=== PATIENT | male | born 1995 | race Caucasian/White ===

== ENCOUNTER 2017-07-31 22:59 | Emergency (ER) | payer MEDICAID, OTHER ==
[2017-07-31 23:07] VITALS: BP 128/78
[2017-07-31] MEDS ORDERED: LIDOCAINE 1% INJ-PF (10 MG/ML) 30 ML SDV INJ ONE (23:22)
[2017-07-31] MEDS ORDERED: DIPH/PERTUSS(ACELL)/TETANUS VAC/PF 0.5 ML SYR (>=10YO) IM ONE (23:23)
[2017-07-31] MEDS ORDERED: OXYCODONE-ACETAMINOPHEN 5-325 MG TABLET PO ONE (23:23)
[2017-07-31] MEDS ORDERED: PROMETHAZINE HCL 25 MG TABLET PO ONE (23:23)
--- NOTE | 2017-07-31 23:27 | ER Document Report ---
ED Hand/Wrist Injury - General Chief Complaint: Hand Injury Stated Complaint: LACERATION ON RIGHT HAND Time Seen by Provider: 07/31/17 23:17 Notes: Patient is a 22-year-old male who comes emergency department for chief complaint of injury to his right hand. He states he was working under his truck when the truck slipped off support and hit off of his hand over the dorsal aspect near the thumb. He reports pain to the hand along with lacerations. He denies any other areas of pain or injury. He is not up to date on his tetanus. He is here with family. TRAVEL OUTSIDE OF THE [place] IN LAST 30 DAYS: No - Related Data Allergies/Adverse Reactions: No Known Allergies Allergy (Verified 07/31/17 23:05) Past Medical History - General Information source: Patient - Social History Smoking Status: Current Every Day Smoker Frequency of alcohol use: Occasional Lives with: Family Family History: Reviewed & Not Pertinent Patient has suicidal ideation: No Patient has homicidal ideation: No - Medical History Medical History: Negative Renal/ Medical History: Denies: Hx Peritoneal Dialysis Surgical Hx: Negative - Immunizations Immunizations up to date: No Hx Diphtheria, Pertussis, Tetanus Vaccination: Yes Review of Systems - Review of Systems Constitutional: No symptoms reported EENT: No symptoms reported Cardiovascular: No symptoms reported Respiratory: No symptoms reported Gastrointestinal: No symptoms reported Genitourinary: No symptoms reported Male Genitourinary: No symptoms reported Musculoskeletal: See HPI Skin: No symptoms reported Hematologic/Lymphatic: No symptoms reported Neurological/Psychological: No symptoms reported Physical Exam - Vital signs Vitals: Temp Pulse Resp BP Pulse Ox 98.3 F 71 18 128/78 H 98 07/31/17 23:05 07/31/17 23:05 07/31/17 23:05 07/31/17 23:05 07/31/17 23:05 Interpretation: Normal - General General appearance: Appears well, Alert In distress: None - HEENT Head: Normocephalic, Atraumatic Eyes: Normal Pupils: PERRL - Respiratory Respiratory status: No respiratory distress Chest status: Nontender Breath sounds: Normal Chest palpation: Normal - Cardiovascular Rhythm: Regular Heart sounds: Normal auscultation Murmur: No - Abdominal Inspection: Normal Distension: No distension Bowel sounds: Normal Tenderness: Nontender Organomegaly: No organomegaly - Back Back: Normal, Nontender - Extremities General upper extremity: Other - Right hand with laceration over the webbing and wrist at the base of the thumb, swelling in the thenar area, tenderness over the first and second metacarpals, no snuffbox tenderness, normal capillary refill and sensation, normal range of motion of all fingers, normal hand, forearm, elbow exam otherwise. General lower extremity: Normal inspection, Nontender, Normal color, Normal ROM , Normal temperature, Normal weight bearing. No: Kurt's sign - Neurological Neuro grossly intact: Yes Cognition: Normal Orientation: AAOx4 [place] Coma Scale Eye Opening: Spontaneous [place] Coma Scale Verbal: Oriented Pietro Coma Scale Motor: Obeys Commands [place] Coma Scale Total: 15 Speech: Normal Motor strength normal: LUE, RUE, LLE, RLE Sensory: Normal - Psychological Associated symptoms: Normal affect, Normal mood - Skin Skin Temperature: Warm Skin Moisture: Dry Skin Color: Normal Course - Re-evaluation Re-evalutation: Comminuted second metacarpal of the right hand from the trauma. Open wounds above the fracture although I cannot visualize the fracture, patient has no tendon deficits, no neurological deficits, no evidence of large vessel injury. Wounds were soaked for 30 minutes before procedure. Wounds repaired after thorough cleaning, placed on Augmentin, updated tetanus. Splint placed. Initially was going to do sugar tong but he was immobilized much better with a thumb spica. Patient referred to orthopedics, he stressed importance of follow- up, patient states that he will call tomorrow and be seen in close follow-up. Discussed return precautions. Patient states understanding and agreement. - Vital Signs Vital signs: Temp Pulse Resp BP Pulse Ox 98.3 F 71 18 128/78 H 98 07/31/17 23:05 07/31/17 23:05 07/31/17 23:05 07/31/17 23:05 07/31/17 23:05 Procedures - Immobilization Right hand/wrist Pre-Proc Neuro Vasc Exam: Normal Immobilizer type: Thumb spica Performed by: RN Post-Proc Neuro Vasc Exam: Normal Alignment checked and good: Yes - Laceration/Wound Repair Right wrist Wound length (cm): 2 Wound's Depth, Shape: Linear Laceration pre-procedure: Sterile PPE donned, Sterile drapes applied, Shur- Clens applied Anesthetic type: 1% Lidocaine Volume Anesthetic (mLs): 2 Wound explored: Clean, No foreign body removed Irrigated w/ Saline (mLs): 40 Wound Repaired With: Sutures Suture Size/Type: 5:0, Nylon Number of Sutures: 4 Layer Closure?: No Post-procedure wound care: Sterile dressing applied, Splint applied Post-procedure NV exam normal: Yes Complications: No Right hand Wound length (cm): 4 Wound's Depth, Shape: Irregular Laceration pre-procedure: Sterile PPE donned, Sterile drapes applied, Shur- Clens applied Anesthetic type: 1% Lidocaine Volume Anesthetic (mLs): 6 Wound explored: Clean, No foreign body removed Irrigated w/ Saline (mLs): 60 Wound Repaired With: Sutures Suture Size/Type: 5:0, Nylon Number of Sutures: 9 Layer Closure?: No Post-procedure wound care: Sterile dressing applied, Splint applied Post-procedure NV exam normal: Yes Complications: No Discharge - Discharge Clinical Impression: Injury of right hand Qualifiers: Encounter type: initial encounter Qualified Code(s): S69.91XA - Unspecified injury of right wrist, hand and finger(s), initial encounter Metacarpal bone fracture Qualifiers: Encounter type: initial encounter Metacarpal bone: second Fracture type: open Metacarpal location: base Fracture alignment: nondisplaced Laterality: right Qualified Code(s): S62.340B - Nondisplaced fracture of base of second metacarpal bone, right hand, initial encounter for open fracture Hand laceration Qualifiers: Encounter type: initial encounter Foreign body presence: without foreign body Laterality: right Qualified Code(s): S61.411A - Laceration without foreign body of right hand, initial encounter Condition: Stable Disposition: HOME, SELF-CARE Additional Instructions: There is a comminuted fracture of the second metacarpal of your right hand. Wear the splint, call tomorrow at the number listed for Dr. Lassiter for a close follow-up and additional management. Take the antibiotics as prescribed. Take the pain medication if needed. Return for any concerning symptoms including fever, severe pain, etc. Prescriptions: Morphine Sulfate [Morphine Ir 15 Mg Tablet] 15 mg PO Q4HP PRN #15 tablet PRN Reason: Amox Tr/Potassium Clavulanate [Augmentin 875-125 Tablet] 1 tab PO BID 7 Days tablet Forms: Return to Work Referrals: STEFANIA LASSITER, [ACTIVE STAFF] - Follow up tomorrow
--- NOTE | 2017-08-01 00:45 | RADIOLOGY REPORT (SQ) ---
EXAM DESCRIPTION: HAND RIGHT 3 VIEWS COMPLETED DATE/TIME: 08/01/2017 12:05 am REASON FOR STUDY: impact injury, pain COMPARISON: None. EXAM PARAMETERS: NUMBER OF VIEWS: Three views. TECHNIQUE: AP, lateral and oblique radiographic images acquired of the right hand. LIMITATIONS: None. FINDINGS: MINERALIZATION: Normal. BONES: Comminuted, likely intra-articular fracture of the right 2nd metacarpal proximal shaft and bas e with minimal cortical step-off of 0.1 cm. No evidence of healing. Deformity of the 5th metacarpus consistent prior boxer's fracture. JOINTS: No effusions. SOFT TISSUES: No soft tissue swelling. No foreign body. OTHER: No other significant finding. IMPRESSION: Comminuted fracture of the right 2nd metacarpus. TECHNICAL DOCUMENTATION: JOB ID: [id number] [employer]- All Rights Reserved
[2017-08-01] MEDS ORDERED: AMOXICILLIN TR/POT CLAVULANATE 500-125 MG TAB PO ONE (01:13)
[2017-08-01] MEDS ORDERED: HYDROCODONE/ACETAMINOPHEN 5-325 MG 6 TAB/DSPK PO PRN (01:13)
[2017-08-01] MEDS ORDERED: AMOXICILLIN TRIHYDRATE 500 MG CAPSULE PO ONE (01:13)
== END 2017-08-01 01:40 | disposition home or self-care (01) ==
LOC: ER 22:59
PROC: 0HQDXZZ Repair Right Lower Arm Skin, External Approach (ICD-10-PCS; principal; 2017-07-31)
DX: S61.411A Laceration without foreign body of right hand, initial encounter (principal); S62.34 Nondisplaced fracture of base of other metacarpal bone; W20.8XXA Other cause of strike by thrown, projected or falling object, initial encounter; F17.200 Nicotine dependence, unspecified, uncomplicated; Z23 Encounter for immunization
CPT/HCPCS: 99283; 90471; 73130; 90715; 12002; J3490

== ENCOUNTER 2017-08-09 20:21 | Emergency (ER) | payer OTHER ==
[2017-08-09 20:34] VITALS: BP 140/64
--- NOTE | 2017-08-09 20:54 | ER Document Report ---
HPI - HPI Pain Level: Denies Notes: Patient is a 22-year-old male who presents the ED for suture removal to the right hand. Patient states that he has [address] Patient was evaluated by orthopedics as directed was given a brace. Patient states that he has not had any wound dehiscence, redness, purulent discharge, red streaks. No other concerns or complaints. Denies any headache, fever, URI, sore throat, chest pain, palpitations, syncope, cough, shortness of breath, wheeze, dyspnea, abdominal pain, nausea/vomiting/diarrhea, numbness/tingling, muscle paralysis/ weakness, or rash. - ROS Notes: REVIEW OF SYSTEMS: CONSTITUTIONAL : Denies fever, chills, or sweats. Denies recent illness. EENT: Denies eye, ear, throat, or mouth pain or symptoms. Denies nasal or sinus congestion or discharge. Denies throat, tongue, or mouth swelling or difficulty swallowing. CARDIOVASCULAR: Denies chest pain. Denies palpitations or racing or irregular heart beat. Denies ankle edema. RESPIRATORY: Denies cough, cold, or chest congestion. Denies shortness of breath, difficulty breathing, or wheezing. GASTROINTESTINAL: Denies abdominal pain or distention. Denies nausea, vomiting , or diarrhea. GENITOURINARY: Denies difficulty urinating, painful urination, burning, frequency, blood in urine, or discharge. MUSCULOSKELETAL: Denies back or neck pain or stiffness. Denies joint pain or swelling. SKIN: see hpi NEUROLOGICAL: Denies confusion or altered mental status. Denies passing out or loss of consciousness. Denies dizziness or lightheadedness. Denies headache. Denies weakness or paralysis or loss of use of either side. Denies problems with gait or speech. Denies sensory loss, numbness, or tingling. ALL OTHER SYSTEMS REVIEWED AND NEGATIVE. Dictation was performed using [employer] voice recognition software Past Medical History - Social History Smoking Status: Unknown if Ever Smoked Family History: Reviewed & Not Pertinent Renal/ Medical History: Denies: Hx Peritoneal Dialysis - Immunizations Immunizations up to date: No Hx Diphtheria, Pertussis, Tetanus Vaccination: Yes Vertical Provider Document - CONSTITUTIONAL Agree With Documented VS: Yes Notes: PHYSICAL EXAMINATION: GENERAL: Well-appearing, well-nourished and in no acute distress. LUNGS: Breath sounds clear to auscultation bilaterally and equal. No wheezes rales or rhonchi. HEART: Regular rate and rhythm without murmurs, rubs, gallops. Musculoskeletal: N/V intact to rt hand. Extremities: No cyanosis, clubbing, or edema b/l. Peripheral pulses 2+. Capillary refill less than 3 seconds. NEUROLOGICAL: Normal speech, normal gait. Normal sensory, motor exams PSYCH: Normal mood, normal affect. SKIN: Sutures in place. No wound dehiscence or evidence of infection. - INFECTION CONTROL TRAVEL OUTSIDE OF THE [place] IN LAST 30 DAYS: No - RESPIRATORY O2 Sat by Pulse Oximetry: 98 Course - Re-evaluation Re-evalutation: 08/09/17 20:51 Patient is an afebrile, well-hydrated, 22-year-old male who presents the ED for suture removal status post placement about 9 days ago. Vitals are stable. PE is otherwise unremarkable for any neurovascular compromise, wound dehiscence, or infection. Sutures removed successfully without any complications. 13 in all were removed. Patient to continue direction per orthopedics. Recheck with your PCM next week as well. Return to the ED with any worsening/concerning symptoms otherwise as reviewed in discharge. Pt is in agreement. - Vital Signs Vital signs: Temp Pulse Resp BP Pulse Ox 98.3 F 61 16 140/64 H 98 08/09/17 20:32 08/09/17 20:32 08/09/17 20:32 08/09/17 20:32 08/09/17 20:32 Discharge - Discharge Clinical Impression: Visit for suture removal Condition: Stable Disposition: HOME, SELF-CARE Instructions: Suture Removal Additional Instructions: Keep the skin clean Wash with soap and water Continue wearing brace as directed by orthopedics Monitor for any wound dehiscence or infection Recheck with your PCM next week Keep consult with orthopedics Return to the ED with any worsening symptoms and/or development of fever, headache, chest pain, palpitations, syncope, shortness of breath, trouble breathing, abdominal pain, n/v/d, blood in stool/urine, muscle weakness/ paralysis, numbness/tingling, abscess, wound dehiscence, red streaks, purulent discharge, or other worsening symptoms that are concerning to you. Forms: Elevated Blood Pressure Referrals: [facility] [Provider Group] - Follow up as needed
== END 2017-08-09 21:17 | disposition home or self-care (01) ==
LOC: ER 20:21
DX: Z48.02 Encounter for removal of sutures (principal)